=== PATIENT | female | born 1970 | race Hispanic/Latino ===

== ENCOUNTER 2016-06-25 21:06 | Emergency (ER) | payer OTHER ==
[~2016-06-25] VITALS: Ht 170.2 cm; Wt 111.4 kg
[~2016-06-25 21:06] MED LIST: ACET650T50 PO; CITA10TA14 PO; LISI20TA PO; METF1000 PO; METH-313 PO; NAPR500T PO; NPR250T1 PO; TRAM50TA2 PO
[2016-06-25 21:30] VITALS: BP 161/94; PULSE 71; RESP 18; O2SAT 95
--- NOTE | 2016-06-25 23:53 | ED.REPORT ---
HPI-General Illness Date of Service Jun 25, 2016 ED Provider: Dr. Isaiah Roberts D.O. A 46 year old female with a history of chronic back pain and a herniated disc presents to the ED with right-sided neck pain onset five days ago. The pain radiates upward from her back. Associated symptoms include headache, bilateral eye pain, right-sided facial pain, subjective fever, nausea, and vomiting. The patient denies other symptoms. She has had similar symptoms in the past. The patient speaks Indonesian and her son was translating. Nursing Notes Stated Complaint: HEADACHE, NECK,BACK, RIGHT SIDE PAIN Chief Complaint: General Complaint Nursing Notes Reviewed: Yes Allergies: Coded Allergies: No Known Allergies (Verified Allergy, Unknown, 03/03/15) Scheduled Acetaminphen-Expunged Drug, Do Not Renew! (Acetaminphen-Expunged Drug, Do Not Renew!) 650 Mg Tablet.er 650 MG PO PRN Citalopram-Expunged Drug, Do Not Renew! (Citalopram-Expunged Drug, Do Not Renew! ) 10 Mg Tablet 20 MG PO DAILY Lisinopril-Expunged Drug, Do Not Renew! (Lisinopril-Expunged Drug, Do Not Renew! ) 20 Mg Tablet 10 MG PO DAILY Metformin-Expunged Drug, Do Not Renew! (Metformin-Expunged Drug, Do Not Renew!) 1,000 Mg Tablet 500 MG PO BID Naproxen-Expunged Drug, Do Not Renew! (Naprosyn-Expunged Drug, Do Not Renew!) 250 Mg Tab 500 MG PO BID Scheduled PRN Methocarbamol (Robaxin-750) 750 Mg Tablet 1,500 MG PO QID PRN PRN For Spasm Naproxen (Naprosyn) 500 Mg Tablet 500 MG PO BID PRN PRN For Pain Tramadol (Tramadol) 50 Mg Tablet 100 MG PO Q6H PRN PRN For Pain General Time Seen by MD: 23:53 Chief Complaint Other (Neck Pain) Hx Obtained From: Patient, Son Arrived By: Walk-in Sudden in Onset?: No Onset Occurred: 5 days ago Symptom Duration: Since onset Location: : Back: Eye left: Eye right: Face: Head: Neck Quality: Painful Severity: Current: Moderate Severity: Maximum: Moderate Associated with: Reports: Fever, Vomiting Pertinent Negative: Relieved by nothing Recent Healthcare: No recent doctor visit Similar Sx Previous: Yes Past Medical History Past Medical History Notes: Back Specialist: Dr. Storey PCP: Dr. Surendra Adasm Past Medical History Chronic back pain Herniated Disc Past Surgical History None reported Smoking History Unknown if Ever Smoker Social History Other Social History: Good social support, Local resident Ambulatory Status Independent Review of Systems + Right-sided facial pain Full Review of Systems Constitutional: Reports: Fever (Subjective) Eyes: Reports: Eye pain bilateral Respiratory: Denies: Non-productive cough, Shortness of breath GI: Reports: Nausea, Vomiting, Denies: Diarrhea Musculoskeletal: Reports: Back pain, Neck pain (Right-sided) Neurologic: Reports: Headache Complete sys rev & neg: except as marked. Physical Exam Vital Signs Vital Signs Date Time Temp Pulse Resp B/P Pulse Ox O2 Delivery O2 Flow Rate FiO2 06/26/16 02:52 62 16 97 Room Air 06/25/16 21:30 37.3 71 18 161/94 95 Room Air Initial VS: Reviewed Head / Eyes: Atraumatic, Normocephalic ENT: Conjunctiva normal, No scleral icterus Respiratory: No respiratory distress Skin: Warm, Dry Psychiatric: Mood/affect normal, Behavior normal, Normal thought content General/Constitutional: Awake, Alert Behavior: Positive: Tearful Neck: Supple, Full range of motion (With pain) Cervical radiculopathy present Neurologic: Oriented X3, Speech NL, No motor deficits, No sensory deficits, CN II - XII intact Interpretation & Diagnostics Lab Results Interpretation Result Diagram: 06/26/16 0050 06/26/16 0050 Test 06/26/16 00:50 White Blood Count 9.4th/mm3 (3.8-10.1) Red Blood Count 5.01mil/mm3 (3.90-5.20) Hemoglobin 13.9g/dL (12.0-15.6) Hematocrit 41.4% (35.0-46.0) Mean Corpuscular Volume 82.6fL (81-100) Mean Corpuscular Hemoglobin 27.7pg (27.0-35.0) Mean Corpuscular Hemoglobin Concent 33.6% (32.0-37.0) Red Cell Distribution Width 13.0% (12.3-15.4) Platelet Count 311bil/L (150-400) Neutrophils (%) (Auto) 61.5% (40-74) Lymphocytes (%) (Auto) 30.0% (14-46) Monocytes (%) (Auto) 6.3% (4-12) Eosinophils (%) (Auto) 1.5% (0-5) Basophils (%) (Auto) 0.4% (0-3) Sodium Level 139mEq/L (134-144) Potassium Level 3.7mEq/L (3.5-5.2) Chloride Level 99mEq/L (97-108) Carbon Dioxide Level 23mmol/L (18-29) Blood Urea Nitrogen 15mg/dL (6-24) Creatinine 0.61mg/dL (0.57-1.00) Estimat Glomerular Filtration Rate 151mL/min (>59) Glucose Level 141mg/dL (60-99) Calcium Level 9.0mg/dL (8.5-10.1) Total Bilirubin 0.3mg/dL (0.0-1.2) Aspartate Amino Transf (AST/SGOT) 23U/L (0-50) Alanine Aminotransferase (ALT/SGPT) 34U/L (0-32) Alkaline Phosphatase 112U/L (25-150) C-Reactive Protein 1.2mg/dL (0.0-0.5) Total Protein 7.7g/dL (6.4-8.4) Albumin 4.4g/dL (3.4-5.0) CT Head Interpretation CONCLUSION: No acute intracranial abnormality. Left sphenoid sinus disease. Transmitted to ED at 06/26/2016 - 1:25:02 AM PDT Study: Head CT no contrast Interpretation / Wet Read by: Interpret - Radiologist (Selam De M.D.) Re-Eval/Medical Decision Med Decision/Clinical Course CT scan shows possible sinusitis however and it does not seem to be suffering with acute bacterial sinusitis. She has chronic neck pain that seemed to trigger migraines. We treated her neck pain and she looked and felt better. She had a normal white blood cell count. I talked her about a lumbar puncture. Her son acted as train braker. She has decided that if she continues to have headache tomorrow she will return for possible lumbar puncture. She understands that she develops a fever or any sudden severe pain she is to come back right away. At discharge she was essentially pain-free looked and felt well. Source of Hx: Old records Time of Eval: 02:04 Patient Status: Condition improved, Pain improved Re-Evaluation/Progress Note: Patient is feeling much better. Discussed with patient CT and lab results with plan for LP. Patient declines LP and requests discharge with pain medication. Discussed diagnosis and plan for discharge. Follow-up and return to the ER instructions given. Patient agrees with plan for care and all questions were addressed. Counseled Regarding: Diagnosis, Lab results, Need for follow-up, When/why to return to ED Discharge & Departure Shift Change Sign-Out Response to Therapy: Improved Primary Impression: Neck pain Additional Impression: Headache Headache type: unspecified Headache chronicity pattern: acute headache Intractability: not intractable Qualified Code: R51 - Headache Disposition: Home Discharge Condition All VS Reviewed: Yes Condition: Improved Patient Instructions: Acute Headache (ED) Additional Instructions: Thank you for entrusting us with your care. Your laboratory work and CT scan were reassuring. You do have some ethmoid sinus disease and this may be allergic. Try [id number] Faviola or other antihistamines/allergy medications. As we discussed a lumbar puncture is needed/recommended to rule out subtle bleeding or infection. If you develop a fever be sure and come right back to the emergency department. Do not drive tonight as you have received sedating medications. Return to the ER with any new or worsening symptoms including fever or worsening pain. Finish the Medrol dose pack. 1-2 [place] every six hours as needed for pain. Do not drink alcohol, drive, or consume acetaminophen while taking [place]. Call the referred clinic for a follow-up appointment. Referrals: Crow Storey MD (PCP) Smiley Conner MD (Family) [facility] Scribe Attestation Portions of this note were transcribed by Noris Sims. I, Dr. Roberts, personally performed the history, physical exam, and medical decision-making; I reviewed and confirmed the accuracy of the information in the transcribed note. Signed by: Zakiya Del Castillo, 06/26/2016, 02:35 copies to: [facility]; Crow Storey MD; Smiley Conner MD, Todd P DO Jun 25, 2016 23:53 NORIS SIMS Jun 26, 2016 00:38
[2016-06-26] MEDS ORDERED: Ondansetron 2 mg/mL 2 mL Inj IVPUSH PRN (00:35)
[2016-06-26] MEDS: HYDROmorphone 0.5 mg/0.5 mL iSecure Syringe IVPUSH PRN ×2 (00:55→02:27)
[2016-06-26 01:02] LABS: BASOPHILS % (AUTO) 0.4 % (0-3); EOSINOPHILS % (AUTO) 1.5 % (0-5); MONOCYTES % (AUTO) 6.3 % (4-12); Mean Corpuscular Hemoglobin 27.7 pg (27.0-35.0); Mean Corpuscular Volume 82.6 fL (81-100); NEUTROPHILS % (AUTO) 61.5 % (40-74); Platelet Count 311 bil/L (150-400)
[2016-06-26] MEDS ORDERED: Dexamethasone Inj 10 MG in 0.9% Sodium Chloride-Pha MIX 50 ML IV ONE (02:20)
[2016-06-26] MEDS ORDERED: _HYDROcodone/APAP 5-325 mg Tablet PO PRN (02:20)
[2016-06-26 02:52] VITALS: PULSE 62; RESP 16; O2SAT 97
--- NOTE | 2016-06-26 11:27 | DRSVH ---
PROCEDURE: CT BRAIN WITHOUT CONTRAST ([id number]) INDICATIONS: headache, neck pain TECHNIQUE: Noncontrast 4.5 mm thick angled axial sections acquired from the foramen magnum to the vertex, with c oronal reformats. COMPARISON: None. FINDINGS: Image quality: Excellent. CSF spaces: Basal cisterns are patent. No extra-axial fluid collections. Ventricles are normal in size and shape. Brain: No midline shift. No intracranial masses or hemorrhage. [place]-white matter interface is norm al. Skull and face: Calvarium and visualized facial bones are intact, without suspicious lesions. Sinuses: Visualized sinuses demonstrate mucosal thickening and fluid level within the left sphenoid sinus. IMPRESSION: 1. No acute intracranial process. 2. Mucosal thickening and fluid within the left sphenoid sinus. Rectal correlation of potential sinus itis. Dictated by: Alvina Mora M.D. on 06/26/2016 at 11:24 Approved by: Alvina Mora M.D. on 06/26/2016 at 11:25
== END 2016-06-26 02:53 | disposition home or self-care (01) ==
LOC: SED 21:06
DX: M54.2 Cervicalgia (principal); R51 Headache; Z79.84 Long term (current) use of oral hypoglycemic drugs
CPT/HCPCS: 36415; 70450; 80053; 85025; 86140; 96374; 96375; 99285; J1100; J1170; J1200; J1885; J2405